=== PATIENT | female | born 1950 | race Caucasian/White ===

== ENCOUNTER → 2025-02-02 | Outpatient (CLI) | payer MEDICARE, OTHER, SELFPAY ==
--- NOTE | 2025-02-02 15:24 | RAD_ITS ---
PROCEDURE: ANKLE 2 VIEWS 02/02/2025 REASON FOR EXAM: LYMPHEDEMA TECHNIQUE: ANKLE 2 VIEWS COMPARISON: No FINDINGS: Old distal tibia and fibular fractures with healing. No acute bone pathology. Unremarkable ankle joint. There is mild lower leg soft tissue swelling without gas. RAD/Ankle 2 Views IMPRESSION: Lower leg soft tissue swelling. Reading Location: [place] [id number]
== END | disposition home or self-care (01) ==
LOC: MTRAD 15:12
PROVIDERS: PCP Nurse Practitioner Family; Referring Provider Dermatology Pediatric Dermatology; Visit Provider Dermatology Pediatric Dermatology
DX: I89.0 Lymphedema, not elsewhere classified (principal)
CPT/HCPCS: 73600